=== PATIENT | female | born 1955 | race Two or more races ===

== ENCOUNTER 2023-08-06 10:47 | Emergency (ER) | payer BC ==
[~2023-08-06] VITALS: Ht 170.2 cm; Wt 113.4 kg
[2023-08-06] MEDS ORDERED: GLUMETZA500 MG (11:26)
[2023-08-06] MEDS ORDERED: COENZYME Q10200 M2 PO (11:27)
[2023-08-06] MEDS ORDERED: NP THYROID60 MG (11:27)
[2023-08-06] MEDS ORDERED: ALLEGRA ALLERGY60 MG PO (11:27)
[2023-08-06] MEDS ORDERED: PENTASA500 MG PO (11:28)
[2023-08-06] MEDS ORDERED: MAGNESIUM500 MG (11:29)
[2023-08-06] MEDS ORDERED: [UNRECOGNIZED DRUG - OTHER] (11:29)
[2023-08-06] MEDS ORDERED: CYTOMEL5 MCG (11:30)
[2023-08-06] MEDS ORDERED: 0.9 % SODIUM CHLORIDE 500 ML IV STA (12:05)
[2023-08-06 13:12] LABS: HEMATOCRIT 40.8 % (36.0-45.00); HEMOGLOBIN 13.7 g/dL (12.0-15.00); MEAN CELL VOLUME 92.2 fL (80.00-100.00); MEAN CORPUSCULAR HEMOGLOBIN 31.1 pg (27.00-32.0); MEAN CORPUSCULAR HGB CONC 33.7 g/dl (32.0-36.0); PLATELET COUNT 269 K/uL (150-450); RED BLOOD COUNT 4.42 M/uL (4.00-6.00); RED CELL DISTRIBUTION WIDTH 14.1 % (11.5-14.5)
[2023-08-06 14:02] LABS: CALCIUM 9.2 mg/dL (8.5-10.1); CREATININE SERUM 0.73 mg/dL (0.55-1.02); GFR 80.01; MAGNESIUM 2.1 mg/dL (1.8-2.4); POTASSIUM 4.4 mEq/L (3.5-5.1)
[2023-08-06 14:03] LABS: TSH 0.148 uIU/mL (0.358-3.74)
== END 2023-08-06 15:59 | disposition home or self-care (01) ==
LOC: ER 10:48
PROVIDERS: General Practice
DX: R00.2 Palpitations (principal); Z88.6 Allergy status to analgesic agent; Z91.040 Latex allergy status; Z88.8 Allergy status to other drugs, medicaments and biological substances; E03.9 Hypothyroidism, unspecified; K50.90 Crohn's disease, unspecified, without complications; E83.49 Other disorders of magnesium metabolism; E78.49 Other hyperlipidemia